=== PATIENT | male | born 1950 | race Caucasian/White ===

== ENCOUNTER 2017-03-03 09:13 | Inpatient (IN) | payer OTHER ==
[~2017-03-03] VITALS: Ht 182.9 cm; Wt 135.6 kg
[~2017-03-03 09:13] MED LIST: AMARYL4 MG PO; ASPIR 8181 MG PO; CARVEDILOL12.5 MG PO; COZAAR 50 MG TA50 M2 PO; DUONEB 2.5-0.5 M3 ML INH; FISH OIL 1,001000 M2 PO; FUROSEMIDE 20 M20 MG PO; KLOR-CON SPRIN10 MEQ PO; LASIX 80 MG TAB80 MG PO; LEVAQUIN 500 M500 M1 PO; LEVOTHYROXIN0.175 MG PO; METFORMIN HCL500 MG PO; METOLAZONE 5 MG5 MG PO; NORVASC2.5 MG PO; OXYGEN MISCELL; PREDNISONE 20 M20 MG PO; PRINIVIL20 MG PO; SPIRIVA INH; VENTOLIN HFA 1818 GM INH; XARELTO15 MG PO; ZOCOR20 MG PO; ZPAK PO
[2017-03-03 09:23] VITALS: BP 109/52
[2017-03-03] MEDS ORDERED: SYNTHROID100 MCG PO (09:35)
[2017-03-03] MEDS ORDERED: COREG6.25 MG PO (09:40)
[2017-03-03] MEDS ORDERED: LASIX 20 MG TAB20 MG PO (09:40)
[2017-03-03] MEDS ORDERED: LANTUS SUBQ (09:42)
[2017-03-03 09:58] LABS: HEMATOCRIT 40.8 % (42.0-52.0); HEMOGLOBIN 13.1 gm/dL (14.0-18.0); MCH 29.7 pg (26.0-34.0); MCV 92.7 fL (80.0-100.0); MPV 10.7 fl. (7.2-11.1); NUCLEATED RBCS 0 /100WBC; PLATELET COUNT* 187 thou/uL (150-400); RBC 4.41 mil/uL (4.50-6.00); RDW-CV 14.5 % (10.5-14.5); WBC 30.1 thou/uL (4.0-11.0)
[2017-03-03 10:08] LABS: ANION GAP 6 mmol/L (7-16); BUN 50 mg/dL (7-18); CHLORIDE 102 mmol/L (98-107); CO2 30 mmol/L (21-32); GLUCOSE 240 mg/dL (70-99); POTASSIUM 4.6 mmol/L (3.5-5.1); SODIUM 138 mmol/L (136-145)
[2017-03-03 10:19] LABS: BE -1.6 mmol/L (-2 to +3); HCO3 27.6 mmol/L (22.0-26.0)
[2017-03-03 10:19] LABS: ALBUMIN 2.5 g/dL (3.4-5.0); ALKALINE PHOSPHATASE 82 U/L (46-116); MAGNESIUM 2.2 mg/dL (1.8-2.4); SGOT 37 U/L (15-37); SGPT 38 U/L (30-65); TOTAL BILIRUBIN 0.6 mg/dL (<0.1-1.0); TOTAL PROTEIN 6.8 g/dL (6.4-8.2); TROPONIN-I LEVEL <0.06 ng/mL (<0.06)
[2017-03-03 10:22] LABS: PCO2 67.5 mmHg (35.0-45.0)
--- NOTE | 2017-03-03 10:33 | NUR ---
PT ON BIPAP AND DIFFICULT TO AROUSE. PT'S STATED THAT THIS MORNING WAS THE FIRST TIME THE PATIENT STATED THAT HIS RIBS WERE HURTING.
[2017-03-03 10:37] LABS: NT-PRO BRAIN NAT PEPTIDE 4063 pg/mL (<300)
[2017-03-03 10:48] LABS: ABSOLUTE LYMPHOCYTES 0.3 thou/uL (0.8-5.3); ABSOLUTE MONOCYTES 1.2 thou/uL (0.0-1.2); ABSOLUTE NEUTROPHILS 28.6 thou/uL (1.6-8.1)
[2017-03-03 10:49] LABS: PLATELET ESTIMATE ADEQUATE
[2017-03-03 11:14] LABS: URINE BILIRUBIN NEGATIVE (Negative); URINE BLOOD 2+ (Negative); URINE CLARITY CLEAR; URINE COLOR YELLOW; URINE GLUCOSE-RANDOM TRACE (Negative); URINE KETONES NEGATIVE (Negative); URINE LEUKOCYTES-REFLEX NEGATIVE (Negative); URINE NITRITE-REFLEX NEGATIVE (Negative); URINE PROTEIN 3+ (Negative); URINE SPECIFIC GRAVITY >= 1.030 (1.005-1.030); URINE UROBILINOGEN 0.2 E.U./dl (0.2-1.0)
[2017-03-03 11:39] LABS: AMORPHOUS URATES Few /LPF (None Seen); COARSE GRANULAR CASTS 0-3 Few /LPF (None Seen); FINE GRANULAR CASTS 0-3 Few /LPF (None Seen); HYALINE CASTS 0-3 Few /LPF (None Seen); MUCUS 0-3 Light strn/LPF (None Seen); SQUAMOUS 0-3 Few /LPF (0-3)
[2017-03-03 11:40] LABS: BACTERIA-REFLEX None Seen /HPF (None Seen); URINE RBC 0-2 Rare /HPF (0-2); URINE WBC-REFLEX 0-5 Rare /HPF (0-5)
[2017-03-03 15:15] VITALS: BP 119/59
[2017-03-03 16:00] VITALS: BP 122/60
--- NOTE | 2017-03-03 19:34 | NUR ---
VSS, PT IS NOT WANTING TO WEAR HIS BIPAP, HE KEEPS FINDING REASONS TO NOT WEAR IT, PT WANTS TO EAT, POOP, WATCH TV, I PROVITED EDUCATION FOR REASONS TO WEAR BIPAP, WILL FOLLOW WITH PLAN OF CARE.
[2017-03-03 20:00] VITALS: BP 93/75
[2017-03-03 22:06] LABS: GLYCOHEMOGLOBIN (HGB A1C) 11.8 % (4.8-5.6)
--- NOTE | 2017-03-03 22:06 | NUR ---
ASSUMED PATIENT CARE AT 1900. BEDSIDE REPORT GIVEN. PATIENT DROWSY. REFUSING BIPAP. REFUSING 02. INSTRUCTED ON IMPORTANCE OF COMPLIANCE WITH OXYGEN AND SYMPTOMS OF HYPOXEMIA. BG GREATER THAN 400, NOTIFIED DR ELIZABETH. ORDERS REC'D. PATIENT AGREED TO ONE CORINE WITH BIPAP ON. WILL CONTINUE TO ENCOURAGE HIM TO WEAR BIPAP. HOURLY ROUNDIN AND FALL PRECAUTIONS IN PLACE. WILL CONTINUE TO MONITOR.
[2017-03-04] VITALS (15 sets, daily range): BP systolic 81–1056; BP diastolic 32–69
[2017-03-04 04:58] LABS: ABSOLUTE LYMPHOCYTES 0.5 thou/uL (0.8-5.3); ABSOLUTE MONOCYTES 1.6 thou/uL (0.0-1.2); ABSOLUTE NEUTROPHILS 19.3 thou/uL (1.6-8.1); BASOPHILS 0.2 %; HEMATOCRIT 35.6 % (42.0-52.0); HEMOGLOBIN 11.5 gm/dL (14.0-18.0); LYMPHOCYTES 2.5 %; MCH 29.5 pg (26.0-34.0); MCHC 32.4 g/dL (28.0-37.0); MCV 91.1 fL (80.0-100.0); MONOCYTES 7.4 %; MPV 11.3 fl. (7.2-11.1); NUCLEATED RBCS 0 /100WBC; PLATELET COUNT* 178 thou/uL (150-400); POLYS 89.9 %; RBC 3.91 mil/uL (4.50-6.00); RDW-CV 15.1 % (10.5-14.5); WBC 21.4 thou/uL (4.0-11.0)
[2017-03-04 05:01] LABS: CALCIUM 8.8 mg/dL (8.5-10.1); CREATININE 2.4 mg/dL (0.6-1.3); POTASSIUM 4.1 mmol/L (3.5-5.1)
--- NOTE | 2017-03-04 06:00 | NUR ---
PATIENT STRUGGLED WITH ELEVATED BG THROUGH NIGHT. SPOKE WITH DR DAILY WITH ORDERS RECD. SEE EMAR. POSITIVE BLOOD CULTURES CALLED IN. SUSAN ORDERED IV ABT. CONSULT CALLED TO ID. BIPAP ON 80 PERCENT OF NIGHT. HOURLY ROUNDING AND FALL PRECAUTIONS IN PLACE. WILL CONTINUE TO MONITOR.
[2017-03-04 06:19] LABS: BE 0 mmol/L (-2 to +3); HCO3 27.2 mmol/L (22.0-26.0); PO2 94.4 mmHg (75.0-100.0); pH 7.304 (7.340-7.450)
--- NOTE | 2017-03-04 06:58 | NUR ---
NOTIFIED FULBRIGHT OF HEMATURIA. FLUSHED PHILLIPS. PHILLIPS PATENT WITH NO CLOTTING EVIDENT. ORDER RECD FOR UA.
[2017-03-04 08:55] LABS: APTT 37.1 Seconds (25.0-31.3); INR 1.5; PROTIME 14.7 Seconds (9.20-11.50)
--- NOTE | 2017-03-04 09:50 | NUR ---
PT TRANSFERED DOWN FROM [facility] WITH HYPOTENSION/SEPSIS DIAGNOSIS. PT KELSEY 02 AT 2.0 LITERS WITH 02 SATS LOW 90'S. PT WITH ENCOURAGEMENT PLACED BACK ON BIPAP. CL TO BE PLACED, PT DID SIGN CONSENT. PT WANTING TO EAT EXPLAINED TO PT REASONS FOR NPO STATUS.CELULITUS NOTED TO LOWER EXTREMITIES WITH REMIAN ELEVATED ON PILLOW BILATERLY.MOUTRH CARE GIVEN.
[2017-03-04 11:44] LABS: URINE BILIRUBIN NEGATIVE (Negative); URINE BLOOD 3+ (Negative); URINE CLARITY CLEAR; URINE COLOR YELLOW; URINE GLUCOSE-RANDOM NEGATIVE (Negative); URINE KETONES NEGATIVE (Negative); URINE LEUKOCYTES-REFLEX NEGATIVE (Negative); URINE NITRITE-REFLEX NEGATIVE (Negative); URINE PROTEIN 2+ (Negative); URINE SPECIFIC GRAVITY 1.025 (1.005-1.030); URINE UROBILINOGEN 0.2 E.U./dl (0.2-1.0)
[2017-03-04 11:58] LABS: INFLUENZA A ANTIGEN None Detected (None Detect); INFLUENZA B ANTIGEN None Detected (None Detect)
[2017-03-04 12:10] LABS: HYALINE CASTS 0-3 Few /LPF (None Seen); MUCUS 0-3 Light strn/LPF (None Seen)
[2017-03-04 12:11] LABS: CRYSTALS None Seen /LPF (None Seen); FINE GRANULAR CASTS 0-3 Few /LPF (None Seen); SQUAMOUS 0-3 Few /LPF (0-3); URINE WBC-REFLEX 0-5 Rare /HPF (0-5)
[2017-03-04 12:12] LABS: BACTERIA-REFLEX None Seen /HPF (None Seen); URINE RBC >20 Many /HPF (0-2)
--- NOTE | 2017-03-04 13:10 | EKG ---
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 : 1950 Requested By: Myra Olivas Order Number: [id number] Reading MD: Clifford Nielsen Measurements Intervals [place] Rate: 71 P: 0 DE: 180 QRS: 262 QRSD: 165 T: 91 QT: 459 QTc: 499 Interpretive Statements Ventricular-paced complexes No further analysis attempted due to paced rhythm Baseline wander in lead(s) V2,V3 Compared to ECG 03/27/2016 20:46:17 Atrial fibrillation no longer present Right-axis deviation no longer present T-wave abnormality no longer present Electronically Signed On 03-04-2017 13:10:24 REAL ESTATE ACQUISITION ANALYST by Clifford Nielsen [email or web address] <ELECTRONICALLY SIGNED> By: Clifford Nielsen MD, FACC 03/04/17 1310 Clifford Nielsen MD, FAC /EPI
[2017-03-04 19:35] LABS: CALCIUM 9.2 mg/dL (8.5-10.1); CREATININE 2.4 mg/dL (0.6-1.3); MAGNESIUM 2.4 mg/dL (1.8-2.4); PHOSPHORUS* 6.6 mg/dL (2.5-4.9); POTASSIUM 4.5 mmol/L (3.5-5.1)
--- NOTE | 2017-03-04 20:01 | NUR ---
PT TOLERATING LASIX GTT. PT REFUSEWD TURNING SEVERAL TIMES DURING SHIFT. PT HAS SLEPT MOST OF SHIFT.PT DOES NOT REMEMBER DR PLACING CENTRAL LINE. HERE FROM [facility] TO VISIT WITH PT. PT REFUSED AM CARE. PT DENIES ANY COMPLAINTS OF PAIN OR DISCOMFORT AT THIS TIME.PT SLOWLY IS PROGRESSING TOWARDS DISCHARGE GOALS.
[2017-03-05] VITALS (8 sets, daily range): BP systolic 110–154; BP diastolic 45–70
[2017-03-05 03:50] LABS: BASOPHILS 0.1 %; HEMOGLOBIN 11.3 gm/dL (14.0-18.0); NUCLEATED RBCS 0 /100WBC
[2017-03-05 04:04] LABS: ABSOLUTE LYMPHOCYTES 0.5 thou/uL (0.8-5.3); ABSOLUTE MONOCYTES 0.7 thou/uL (0.0-1.2); ABSOLUTE NEUTROPHILS 18.1 thou/uL (1.6-8.1); LYMPHOCYTES 2.5 %; MCH 29.1 pg (26.0-34.0); MCHC 31.3 g/dL (28.0-37.0); MONOCYTES 3.4 %; MPV 11.1 fl. (7.2-11.1); PLATELET COUNT* 164 thou/uL (150-400); RBC 3.87 mil/uL (4.50-6.00); RDW-CV 14.8 % (10.5-14.5); WBC 19.3 thou/uL (4.0-11.0)
[2017-03-05 04:23] LABS: CALCIUM 9.1 mg/dL (8.5-10.1); CREATININE 2.5 mg/dL (0.6-1.3)
--- NOTE | 2017-03-05 04:56 | NUR ---
PROGRESSION TOWARDS GOALS. ASSESSMENT AND VS OBTAINED, SEE CHARTING. PT BP HAS BEEN NORMAL WITH NO HYPOTENSTION. BATTERY LOADER ON AND TRACING V PACED. PT WORE THE BIPAP ALL NIGHT. PT HAD A LASIX GTT RUNNING AT 5ML/HR THROUGH OUT THE NIGHT. PT STAES THAT HE WOULD LIKE TO GET A CPAP FOR HM. TOLD HIM TO SPEAK WITH THE DR OR CM.
[2017-03-05 06:32] LABS: BE -4.1 mmol/L (-2 to +3); PO2 64.5 mmHg (75.0-100.0)
[2017-03-05 06:34] LABS: pH 7.277 (7.340-7.450)
[2017-03-05 06:35] LABS: PCO2 50.5 mmHg (35.0-45.0)
--- NOTE | 2017-03-05 08:46 | CON ---
[address] [address] CONSULTATION Name: GRECIA HOOD Room: [address] IN [facility].#: [id number] Admission: 03/03/17 Attend Phys: Bob Laura Discharge: Date of : 50 Report #: [id number] THIS REPORT FOR: //name// CC: Elaynemaya Mcguire DATE OF SERVICE: 03/04/2017 ATTENDING PHYSICIAN: Jas Mcguire DO. REASON FOR EVALUATION: Septicemia, now confirmed to have group C strep, isolated from blood culture. HISTORY OF PRESENT ILLNESS: Chart reviewed, patient examined. This is a 66-year-old with history of diabetes mellitus, also has cardiomyopathy, congestive heart failure, some COPD who had noted 48 hours prior to admission, progressive shortness of breath, quite lethargic, and had several falls as well. Bilateral lower extremity edema, altered mental status, elevated oxygen requirements, was treated in the Intensive Care Unit. He is really minimally responsive at this point. He does have a BiPAP in place. ALLERGIES: LISTED TO BENICAR. CURRENT MEDICATIONS: Include budesonide, Zosyn, methylprednisolone, ipratropium and albuterol inhaler, linezolid, arformoterol, levothyroxine, atorvastatin, and carvedilol. PAST MEDICAL HISTORY: As described above. He has had hypertension. SOCIAL HISTORY: Current smoker. No ethanol. No illicit drug use. FAMILY HISTORY: Noncontributory. REVIEW OF SYSTEMS: Not reliably obtained. PHYSICAL EXAMINATION: GENERAL: He appears ill, not overtly toxic although he is in significant amount of distress. He has got the BiPAP in place. He has got multiple abrasions presumably secondary to multiple falls involving the limbs, unable to be aroused. VITAL SIGNS: Temperature 98.2, pulse 70, respirations 18, blood pressure 100/50. SKIN: Warm, dry, no rashes. HEENT: Remarkable for the BiPAP. NECK: [place] [address] CONSULTATION Name: GRECIA HOOD Room: [address] IN [facility].#: [id number] Admission: 03/03/17 Attend Phys: Bob Laura Discharge: Date of : 50 Report #: [id number] LUNGS: Scattered coarse breath sounds. HEART: Distant, regular. I do not appreciate any murmur. ABDOMEN: Obese, soft, no peritoneal signs. GENITOURINARY: Deferred. RECTAL: Deferred. LABORATORY DATA: Blood cultures described above with group C strep. Urinalysis: 0-5 white cells, no bacteria. Influenza antigen was both negative for A and B. Lactic acid 0.7. ABGs: pH 7.304, pCO2 of 56.0, pO2 of 94.4, FiO2 of 40%. CBC: White count of 21.4, H and H 11.5/35.6, platelets of 178. Electrolytes: Sodium 140, potassium 4.1, chloride 104, bicarbonate is 29, anion gap of 7, BUN and creatinine 63 and 2.4. Sed rate of 50. IMAGING: Chest x-ray, no acute process. ASSESSMENT: Group C strep septicemia, presumably a skin source. We will follow through with cultures. Continue therapy as prescribed, certainly at risk for infectious complications such as pneumonitis, with altered mental status certainly may have aspirated. Doubt genitourinary tract etiology. Continue empiric therapy. Plan to pare down fairly quickly. Give mild support as required. <ELECTRONICALLY SIGNED> By: Geremias Garcia MD 03/05/17 0846 [id number] [id number] Garcia MD /nt
[2017-03-05 11:53] LABS: CREATININE 2.7 mg/dL (0.6-1.3); POTASSIUM 4.2 mmol/L (3.5-5.1)
--- NOTE | 2017-03-05 13:35 | NUR ---
REPORT RECIEVED FROM AWILDA MENDOZA. PT SITTING UP EATING AT THIS TIME. AGREE WITH PREVIOUS ASSESSMENT. DENIES PAIN, CARE MGR TRACKING VPACED. BED IN LOWEST POSITOIN-CALL LIGHT WITHIN REACH -WILL CONTINUE TO MONITOR.
--- NOTE | 2017-03-05 14:00 | NUR ---
SPOKE WITH TARIK FROM [facility]. WE TRIED GETTING A TRILOGY FOR PT A YEAR AGO, BUT HIS INSURANCE DENIED IT (DIDN'T GET THE DENIAL UNTIL AFTER PT WAS DISCHARGED FROM THE HOSPITAL). SHE CAN'T TELL FROM HER RECORDS IF PT WAS TO FOLLOW UP WITH PULMONARY ABOUT TRYING TO GET A BIPAP AT HOME. PT DOES HAVE HOME 02 AND NEBULIZER FROM [facility].
--- NOTE | 2017-03-05 18:06 | NUR ---
PT A&O X4. CARIDAC MONITOR TRACKING VPACED. PT SOA WITH EXERTION ON 3L NC SATURATION HOLDING AT 975. DENIES PAIN AT THIS TIME. BILATERAL LEGS WEAPING ELEVATED MUCH POSSIBLE PT SAT ON SIDE OF BED FOR AWHILE REFUSING TO ELEVATE. BM TODAY. ABLE TO GET PATIENT BACK IN BED AND ELEVATE LEGS. AT BEDSIDE THIS EVENING. BED IN LOWEST POSITOIN-CALL LIGHT WITHIN REACH-WILL CONTINUE TO MONITOR.
[2017-03-06] VITALS: BP 124/65
[2017-03-06 04:00] VITALS: BP 117/57
--- NOTE | 2017-03-06 05:04 | NUR ---
PT. PROGRESSING TOWARDS GOALS. LARGE BOWEL MOVEMENT THIS SHIFT. REMAINS V-PACED. NORMAL BP'S THROUGHOUT SHIFT. PT. CURRENTLY ON BIPAP, TOLERATED BIPAP WELL THIS SHIFT. AFEBRILE. BLOOD GLUCOSE 392 BEFORE BEDTIME, DR. HORVATH NOTIFIED. INCREASED TO HIGH DOSE SLIDING SCALE. LASIX GTT CONTINUES TO INFUSE. WILL CONTINUE TO MONITOR.
[2017-03-06 05:10] LABS: HEMATOCRIT 35.4 % (42.0-52.0); HEMOGLOBIN 11.3 gm/dL (14.0-18.0); MCH 29.2 pg (26.0-34.0); MCHC 31.9 g/dL (28.0-37.0); MCV 91.4 fL (80.0-100.0); MPV 11.6 fl. (7.2-11.1); NUCLEATED RBCS 0 /100WBC; PLATELET COUNT* 168 thou/uL (150-400); RBC 3.88 mil/uL (4.50-6.00); RDW-CV 14.8 % (10.5-14.5); WBC 17.9 thou/uL (4.0-11.0)
[2017-03-06 05:31] LABS: CALCIUM 9.2 mg/dL (8.5-10.1); CREATININE 2.9 mg/dL (0.6-1.3); POTASSIUM 4.2 mmol/L (3.5-5.1)
[2017-03-06 05:58] LABS: ABSOLUTE LYMPHOCYTES 1.1 thou/uL (0.8-5.3); ABSOLUTE MONOCYTES 0.2 thou/uL (0.0-1.2); ABSOLUTE NEUTROPHILS 16.6 thou/uL (1.6-8.1); LARGE PLATELETS RARE; PLATELET ESTIMATE ADEQUATE
[2017-03-06 05:58] LABS: BE 3.2 mmol/L (-2 to +3); HCO3 30.8 mmol/L (22.0-26.0); pH 7.318 (7.340-7.450)
[2017-03-06 05:59] LABS: ANISOCYTOSIS 1+; POIKILOCYTOSIS 1+
[2017-03-06 06:03] LABS: PCO2 61.4 mmHg (35.0-45.0); PO2 44.8 mmHg (75.0-100.0)
[2017-03-06 08:00] VITALS: BP 141/70
--- NOTE | 2017-03-06 08:54 | NUR ---
3197 ASSUMED CARE OF PATIENT. SEE DOCUMENTED ASSESSMENT. PT IS TELE STATUS AND V PACED WITH CAPTURE
--- NOTE | 2017-03-06 10:49 | NUR ---
Nutrition: Pt assessed for BMI >40. Wt has been 190#, today 199#, putting him barely ove BMI of 40. Lasix is off, per ICU rounds. Pt has COPD, CHF, ARF. He is going up to tele. Needs a CPAP for home use. Heart healthy diet, CHO count was just added this morning. Albumin 2.5, prealb 12.7, BG 248. Will defer education at this time. Per ICU rounds, pt is noncompliant with recommendations. Some wt is likely fluid-related as well. Mild risk.
--- NOTE | 2017-03-06 11:19 | CON ---
[facility] [address] [place] [address] CONSULTATION Name: GRECIA HOOD Room: [address] IN .R.#: [id number] Admission: 03/03/17 Attend Phys: Bob Laura Discharge: Date of : 50 Report #: [id number] THIS REPORT FOR: //name// CC: Elayne Mcguire DATE OF SERVICE: 03/04/2017 CONSULT REQUESTED BY: Dr. Mcguire. INDICATION FOR CONSULTATION: Acute on chronic hypercarbic respiratory failure. HISTORY OF PRESENT ILLNESS: This is a 66-year-old gentleman. His past medical history does include a history of chronic hypercarbic respiratory failure. There have been previous attempts to set up CPAP and then Trilogy for him at home. He previously also was assessed for oxygen at home. It is not known to me as to which of these was set up for him. He does have chronic obstructive pulmonary disease and he does have obstructive sleep apnea. The patient also does have renal insufficiency at his baseline with a baseline creatinine of 1.6. At this time, the patient was admitted yesterday. Presentation was with increasing shortness of breath. The patient has also been more drowsy. He also had increasing swelling of lower extremities and his lower extremities have been reported to be . The patient also had chest pain with respirations. Note that he is on anticoagulation with Xarelto at home. The patient therefore was brought to the Emergency Room here. The patient initially was on the floor on a BiPAP of 18/8 with 60% FiO2. Initially his pH was low with a high CO2. He has had a partial response to BiPAP therapy, in fact he does appear to be ventilating adequately with 18/8, 40% BiPAP at this time; however, he still appears to have severe bronchospasm. The patient is in acute renal failure with a creatinine of 2.4. He also dropped his blood pressure and it was down to 81/32 this morning and therefore has been brought to the ICU now. The patient initially received fluid resuscitation and subsequently received Lasix. The patient is on BiPAP at this time. He is drowsy, arousable, is unable to provide further history or review of systems. PAST MEDICAL HISTORY: Chronic obstructive pulmonary disease and obstructive sleep apnea. Chronic obstructive pulmonary disease is severe. He has significant hypercarbia at baseline. He previously has been evaluated initially for CPAP and then Trilogy and also was evaluated for oxygen, not known to me as to what was in fact set up. His baseline creatinine is 1.6. His left ventricular ejection fraction is 50-55% from an echo performed towards the beginning of this year. This same echo showed a pulmonary artery systolic of 40. Also, diabetes, hyperlipidemia, hypertension, status post pacemaker placement, atrial fibrillation as well as bradycardia. [place] [address] CONSULTATION Name: GRECIA HOOD Room: [address] IN [facility].#: [id number] Admission: 03/03/17 Attend Phys: Bob Laura Discharge: Date of : 50 Report #: [id number] Xarelto long-term. SOCIAL HISTORY: The patient was an active smoker during the last admission and was reluctant to consider smoking cessation. The last I know, he is still smoking, but I do not have definite information regarding this. No known history of heavy alcohol use or illegal drug use. CURRENT MEDICATIONS: The list is in [facility] and this is reviewed. Home medication list also in [facility] reviewed. FAMILY HISTORY: Diabetes and throat cancer. PHYSICAL EXAMINATION: GENERAL: He is drowsy, he is arousable. VITAL SIGNS: He is on a BiPAP of 18/8. He in fact appears to be ventilating adequately with this and has good tidal volumes of up to 700-800, is saturating 96%. His blood pressure was initially 81/32, has now come up to about 100/60. His heart rate is 63. He is afebrile with a temperature of 36.8. HEENT: Head is normocephalic and atraumatic. There is no throat erythema. Throat examination is limited due to BiPAP in place. NECK: Does not show raised JVP. CHEST: Breath sounds are markedly decreased, breath sounds are barely audible, the patient essentially has a silent chest. HEART: Irregular. There is no murmur. ABDOMEN: Mildly distended, nontender. EXTREMITIES: Lower extremities do show 2-3+ edema. There is erythema of lower extremities noted as well. There is vague calf tenderness. LABORATORY DATA: The patient's chest x-ray from this morning was reviewed and does show bilateral basal infiltrates. There is some mild increase in pulmonary vascular congestion as well. The patient's lab work including arterial blood gases are in [facility] and these are reviewed. ASSESSMENT AND PLAN: 1. Rexut-ki-zahippc hypercarbic respiratory failure. I feel that he is doing reasonably well on BiPAP at this time and his CO2 does appear to be improving, although he continues to have severe bronchospasm. For now, we will leave him on BiPAP. If he does not have Trilogy already at home, then I feel that we should offer it to him again before he is discharged. We will need to assess his oxygen needs as well prior to his discharge. 2. Chronic obstructive pulmonary disease exacerbation. The patient has severe bronchospasm at this time. I would continue high dose Solu-Medrol as currently ordered. I did order DuoNeb as well as budesonide and Brovana as well. 3. Pulmonary infiltrates and cellulitis lower extremities. Considering acute renal failure, I discontinued his vancomycin and ordered linezolid. Note that linezolid does not show up in [facility] in this hospital [place] [address] CONSULTATION Name: GRECIA HOOD Room: [address] IN [facility].#: [id number] Admission: 03/03/17 Attend Phys: Bob Laura Discharge: Date of : 50 Report #: [id number] under the orders tab. My understanding is that there is an active order for linezolid. The Infectious Disease service has also been consulted. I may go ahead and order more cultures and serologies as well. 4. Acute on chronic renal failure with fluid volume overload and hypotension. I do feel that he will need Lasix; however, at this time his blood pressure is low. He also is in acute renal failure. Therefore, for now I have discontinued his Lasix. I did order albumin. If his respiratory status is maintained, then I will watch till tomorrow and reassess regarding when to start Lasix tomorrow. However, if his respiratory status deteriorates today, then we will go ahead and give him Lasix again later today. 5. Chronic atrial fibrillation. The patient is on Xarelto. I have discontinued Xarelto considering acute renal failure. I understand that he does need long-term anticoagulation, suggest reassessing in the next day or two and restarting his anticoagulation. One option considering renal failure will be to give him Eliquis instead of Xarelto. Also note that while he was on Xarelto, it is not known to me as to whether he was compliant with it. Therefore, I would like to do venous Dopplers as well and rule out a venous thrombus. The patient is critically ill at this time. Total time spent providing critical care to this patient today is 45 minutes. <ELECTRONICALLY SIGNED> By: Elodia Yoo MD 03/06/17 1119 [id number] [id number] Fitzpatrick MD /nt
[2017-03-06 12:00] VITALS: BP 142/63
--- NOTE | 2017-03-06 12:36 | NUR ---
MESSAGE TO DR DEGROOT REGARDING RECENT BLOOD GLUCOSE. CARDIAC REHAB SPOKE WITH PATIENT REGARDING HIS CHF.
--- NOTE | 2017-03-06 13:25 | NUR ---
FOOT PULSES AUDIBLE WITH DOPPLER. SEEN BY WOUND NURSE. DOPPLERS PENDING
--- NOTE | 2017-03-06 14:04 | NUR ---
JOHN FAXED TO [employer]
--- NOTE | 2017-03-06 15:37 | NUR ---
1515 to 214 per bed with all records and belongings
--- NOTE | 2017-03-06 18:20 | NUR ---
WOUND CARE NOTE: CONSULT RECEIVED FOR VENOUS ULCERS/UNABOOTS. PATIENT PRESENTS WITH INFLAMMATION AND EDEMA TO BILATERAL LOWER LEGS. RIGHT BEING WORSE THAN THE LEFT. CHRONIC SKIN CHANGES NOTED. RIGHT LEG HAS MULTIPLE AREAS OF SKIN BREAKDOWN WET, MOIST, YELLOW WOUND BEDS. BILATERAL LEGS CLEANSED WITH WOUND CLEANSER, PATTED DRY. APPLIED OPTIFOAM AG TO WOUND BEDS AND SECURED ALL WITH KERLIX AND HARRIET. PATIENT'S ARTERIAL STUDIES SHOW MONOPHASIC FLOW AND SMALL VESSELS. WILL DISCUSS WITH PHYSICIANS TOMORROW. EDUCATED PATIENT ON DRESSING SELECTION FOR THIS TIME, COMMUNICATED UNDERSTANDING. RECOMMEND ELEVATE BLE POSSIBLE NEED FOR HIGHER COMPRESSION, NEED TO DISCUSS WITH PHYSICIANS
--- NOTE | 2017-03-06 18:33 | NUR ---
PT TRANSFERRED TO ROOM 214 VIA BED AT APPROXIMATELY 1600 FROM ICU. PT WENT FOR ULTRASOUND VIA BED PRIOR TO COMING TO FLOOR. REPORT RECEIVED FROM KELLY DWYER. PT ORIENTED TO ROOM AND CALL LIGHT. THIS RN AGREES WITH PREVIOUS [place] SEAMER. PT A&0X4. DENIES ANY PAIN OR SHORTNESS OF BREATH. PT TRACING VPACED ON THE NEW VEHICLE SALES CONSULTANT. ON 3L NC SAT UPPER 90'S. PT VOIDS PER URINAL. UP WITH 1 ASSIST TO BSC. WOUND CARE HERE TO SEE PT AND WRAPPED BILATERAL LE'S. ULTRASOUND RESULTS BACK. REFER TO RESULTS. MEDICATIONS PER APR. PT REPOSITIONED EVERY 2 HOURS FOR COMFORT. HOURLY ROUNDING OBSERVED. BED IN LOW POSITION. BED ALARM IN PLACE. FALL PRECAUTIONS IN PLACE. CALL LIGHT WITHIN REACH. WILL CONTINUE PLAN OF CARE.
[2017-03-06 20:30] VITALS: BP 142/65
[2017-03-07] VITALS: BP 152/80
[2017-03-07 04:00] VITALS: BP 111/57
--- NOTE | 2017-03-07 06:26 | NUR ---
ASSUMED CARE AROUND 1930. PT A/OX4, DROWSY PERIODICALLY DURING SHIFT. PT TOLERATED BIPAP FOR ABOUT 4 HOURS THIS SHIFT; OTHERWISE ON 3L NC. TELE V-PACED. VSS. LOOSE STOOLS. UP SBA TO BSC, URINATED ALL OVER FLOOR ON ACCIDENT. FEMORAL LINE SALINE LOCKED. DENIES PAIN. DOPPLERED LE PULSES. LE WRAPS IN PLACE. PT REPORTS SLEEPING WELL AND FEELING BETTER THIS AM. FALL PRECAUTIONS IN PLACE. WILL CONTINUE WITH PLAN OF CARE.
[2017-03-07 06:32] LABS: CREATININE 3.1 mg/dL (0.6-1.3); POTASSIUM 4.1 mmol/L (3.5-5.1)
[2017-03-07 08:00] VITALS: BP 154/78
--- NOTE | 2017-03-07 10:41 | NUR ---
Spoke with Pt and , they both confirmed that Pt does have a cpap at home through [facility]. Updated Ana at [facility] that Pt does have a cpap. CM to attempt to figure out what Pt needs at home. Pt states that he thinks he needs some kind of special mask to make the cpap work appropriately. Following.
--- NOTE | 2017-03-07 10:50 | NUR ---
CM ASSESSMENT: Pt is A&O. Resides at home with his . Independent with ADLs. Pt states that he has home o2, neb and cpap at home, provided through [facility]. Hx of HH with [facility]. No hx of SNF. CM trying to figure out what Pt needs at home to make his Cpap work for him. CM in contact with Ana from [facility] and will update pulm. Goal is to return home once medically stable.
[2017-03-07 11:41] VITALS: BP 140/63
[2017-03-07 16:00] VITALS: BP 159/62
--- NOTE | 2017-03-07 18:36 | NUR ---
WOUND CARE NOTE: ASSESSED PATIENT WITH VASCULAR SURGEON. SIGNIFICANT DRAINAGE TO RIGHT LOWER EXTREMITIES. RIGHT LOWER EXTREMITY RED, EDEMATOUS, WITH MULTIPLE AREAS OF BLISTERING AND BREAKDOWN. LEFT LOWER EXTREMITY REMAINS UNCHANGED WITH INFLAMMATION TO THE PRETIBIAL AREA. CLEANSED BOTH LEGS WITH SOAP AND WATER, APPLIED LOTION TO INTACT SKIN. APPLIED OPTIFOAM AG TO OPEN, WEEPING AREAS. THEN PLACED 3 LAYER WRAPS BILATERALLY. PATIENT TOLERATED DRESSING CHANGE WELL, DID HAVE SOME PAIN DURING WRAP OF RIGHT LOWER EXTREMITY WHICH RESOLVED UPON COMPLETION OF WRAP PLACEMENT.
--- NOTE | 2017-03-07 18:51 | NUR ---
ASSUMED CARE OF PT AT 0730. BEDSIDE REPORT RECIEVED FROM NOC ELIZABETH DOMINGUEZ. PT CONTINUES TO BE A&O X4 CALM AND COOPERATIVE. PT HAS C/O BACK AND BLE PAIN BUT DENIES THE NEED FOR PHARMACOLOGICAL INTERVENTION. PT HAS BEEN UP TO THE BATHROOM WITH 1 ASSIST SEVERAL TIMES TODAY AND IS VOIDING VIA THE TOILET NORMALLY. PT HAS HAD NO C/O N/V, OR CHEST PAIN. LEGS WERE CLEANED AND REDRESSED BY THE WOUND NURSE WITH THIS NURSE ASSISTING. PT CONTINUES TO HAVE SIGNIFICANT EDEMA IN BLE AND SCROTUM. PT TRACING V PACWED WITH PVC'S ON THE MONITOR, VSS. PT CURRENTLY SITTING IN BED WATCHING TV. NURSING WILL CONTINUE TO MONITOR.
[2017-03-08] VITALS: BP 153/76
--- NOTE | 2017-03-08 | NUR ---
PT'S CALLED REQUESTING PT BE MADE CONFIDENTIAL STATUS D/T A SON WHO WAS UPSET WITH PATIENT. SON'S NAME GRECIA HOOD JR. PATIENT STATES SON ISN'T THREATENING OR A DANGER, JUST UPSET BECAUSE HE OWES PATIENT MONEY. PATIENT DOES NOT WANT HIM TO KNOW HE'S HERE OR WHAT ROOM HE'S IN. SECURITY NOTIFIED AND MADE CONFIDENTIAL IN COMPUTER.
[2017-03-08 04:37] VITALS: BP 136/67
[2017-03-08 05:36] LABS: HEMATOCRIT 35.9 % (42.0-52.0); HEMOGLOBIN 11.4 gm/dL (14.0-18.0); MCH 29.4 pg (26.0-34.0); MCHC 31.7 g/dL (28.0-37.0); MCV 92.8 fL (80.0-100.0); MPV 11.1 fl. (7.2-11.1); RBC 3.87 mil/uL (4.50-6.00); RDW-CV 14.9 % (10.5-14.5); WBC 13.9 thou/uL (4.0-11.0)
[2017-03-08 05:57] LABS: ALBUMIN 2.5 g/dL (3.4-5.0); CREATININE 2.7 mg/dL (0.6-1.3); MAGNESIUM 2.9 mg/dL (1.8-2.4); PHOSPHORUS* 6.2 mg/dL (2.5-4.9); POTASSIUM 4.9 mmol/L (3.5-5.1); TOTAL BILIRUBIN 0.5 mg/dL (<0.1-1.0)
--- NOTE | 2017-03-08 07:29 | NUR ---
ASSUMED CARE AROUND 1930. PT A/OX4. PT DID NOT REST WELL TONIGHT BUT WORE CONT PULSE OX. PT SLEPT MAYBE 3 HOURS THIS AM. TELE TRACING SR/BBB. VSS, AFEBRILE. FEMORAL LINE PATENT. ON 3L NC-PT REMOVES AT TIMES. INSTRUCTED TO LEAVE IN PLACE. PT DRINKING COFFEE AND M[place]AIN DEW- ENCOURAGE TO DRINK WATER THIS AM, PITCHER FILLED WITH WATER. UP SBA TO BSC TONIGHT. BM THIS SHIFT, INCONT ON FLOOR. REPORTING RIGHT RIB PAIN THIS AM, REFUSED PAIN MEDS AT THIS TIME. PVR BLADDER SCAN DONE LAST NIGHT, 224 ML. SEE OTHER CHARTING. CALL LIGHT IN REACH, WILL CONTINUE WITH PLAN OF CARE.
[2017-03-08 08:17] VITALS: BP 169/78
--- NOTE | 2017-03-08 10:28 | NUR ---
Overnight oxemetry completed last night, does not qualify Pt for bipap per Ana at [facility]. Ana plans to resubmit referral to Pt's insurance to qualify him for a trilogy.
--- NOTE | 2017-03-08 16:21 | 2DMMODE ---
[place] [address] 2 D/M-MODE ECHOCARDIOGRAM Name: GRECIA HOOD Room: [address] ADM IN [facility]#: [id number] Admission: 03/03/17 Attend Phys: Jas Mcguire Discharge: Date of : 50 Date of Service: 03/08/17 1621 Report #: [id number] THIS REPORT FOR: //name// APPROVED REPORT Study performed: 03/08/2017 12:12:46 EXAM: Comprehensive 2D, Doppler, and color-flow Echocardiogram Patient Location: In-Patient Room #: 214 Status: routine BSA: 2.53 HR: 77 bpm BP: 169/78 mmHg Rhythm: NSR Other Information Study Quality: Good Indications Congestive Heart Failure Dyspnea Echo Enhancing Agent Indication: Endocardial border delineation Agent(s) / Amount(s) Used: Optison 4 cc 2D Dimensions LVEF(%): 66.69 (>50%) IVSd: 18.94 (7-11mm) LVOT Diam: 20.00 (18-24mm) LVDd: 54.46 mm PWd: 12.95 (7-11mm) Ascending Ao: 40.07 (22-36mm) LVDs: 34.17 (25-40mm) Aortic Root: 36.64 mm Parmar's LVEF: 66.69 % Volumes Left Atrial Volume (Systole) LA ESV Index: 38.90 mL/m2 Aortic Valve AoV Peak Yovany.: 2.11 m/s AO Peak Gr.: 17.73 mmHg LVOT Max P.57 mmHg AO Mean Gr.: 10.08 mmHg LVOT Mean P.72 mmHg LVOT Max V: 0.94 m/[place] [address] 2 D/M-MODE ECHOCARDIOGRAM Name: GRECIA HOOD Room: [address] IN .R.#: [id number] Admission: 03/03/17 Attend Phys: Jas Mcguire Discharge: Date of : 50 Date of Service: 03/08/17 1621 Report #: [id number] AO V2 VTI: 44.86 cm LVOT Mean V: 0.60 m/s JAIRO (VTI): 1.36 cm2 LVOT V1 VTI: 19.43 cm Mitral Valve E/A Ratio: 2.89 MV Decel. Time: 179.46 ms MV E Max Yovany.: 1.24 m/s MV PHT: 52.04 ms MVA (PHT): 4.23 cm2 TDI E/Lateral E': 12.40 E/Medial E': 17.71 Medial E' Yovany.: 0.07 m/s Lateral E' Yovany.: 0.10 m/s Tricuspid Valve TR Peak Gr.: 37.65 mmHg RVSP: 42.00 mmHg Left Ventricle Left ventricle is mildly dilated. Apical akinesis noted. Mild to moderate concentric left ventricular hypertrophy. Left ventricular systolic function is normal. LVEF is 55-60%. This study is not technically sufficient to allow evaluation of the LV diastolic function due to atrial fibrillation. Right Ventricle Right ventricle is mild to moderately dilated. The right ventricular systolic function is normal. Pacemaker lead is present in the right ventricle. Atria Left atrium is moderately dilated. Right atrium is mildly dilated. Aortic Valve Aortic valve sclerosis. No aortic regurgitation is present. Mild to moderate aortic stenosis. Mitral Valve The mitral valve is normal in structure. Trace mitral regurgitation. No evidence of mitral valve stenosis. Tricuspid Valve The tricuspid valve is normal in structure. Trace tricuspid regurgitation. The RVSP is 40-[place] [address] 2 D/M-MODE ECHOCARDIOGRAM Name: GRECIA HOOD Sara Room: [address] IN [facility]#: [id number] Admission: 03/03/17 Attend Phys: Jas Mcguire Discharge: Date of : 50 Date of Service: 03/08/17 1621 Report #: [id number] Pulmonic Valve The pulmonary valve is normal in structure. There is no pulmonic valvular regurgitation. Great Vessels Aortic root is mildly dilated. IVC is normal in size and collapses with >50% inspiration Pericardium There is no pericardial effusion. <Conclusion> Left ventricle is mildly dilated. Mild to moderate concentric left ventricular hypertrophy. Left ventricular systolic function is normal. LVEF is 55-60%. This study is not technically sufficient to allow evaluation of the LV diastolic function due to atrial fibrillation. Apical akinesis noted. Right ventricle is mild to moderately dilated. Left atrium is moderately dilated. Right atrium is mildly dilated. Pacemaker lead is present in the right ventricle. Aortic valve sclerosis. Mild to moderate aortic stenosis. Trace tricuspid regurgitation. The RVSP is 40-45 mmHg. Aortic root is mildly dilated. <ELECTRONICALLY SIGNED> By: Demarcus Hill MD, FACC 03/08/17 162 20 20 Demarcus Hill MD, FACC /INF
[2017-03-08 16:43] VITALS: BP 173/76
[2017-03-08 17:09] LABS: COMPLEMENT-C4 35 mg/dL (14-44)
--- NOTE | 2017-03-08 18:14 | NUR ---
ASSUMED CARE OF PT AT 0730. PT CONTINUES TO BE A&O X4, CALM AND COOPERATIVE. PT HAS DENIED AND C/O CHEST PAIN OR DISTRESS. REPORTS OC CASIONAL BACK PAIN BUT DENIES THE NEED FOR PAIN MEDICATION. PT BLADDER SCAN POST VOID X 2 TODAY AND WAS LESS THAN 100 ML EACH TIME. PT HAS A GOOD APPETITE AND HAS ATE 100% OF ALL MEALS. BLE DRESSING CHANGED BY WOUND NURSE. PT UP TO BEDSIDE COMMODE TODAY WITH 1 ASSIST. PT HAS BEEN TRACING NSR WITH A BBB ON THE MONITOR TODAY. NURSING WILL CONTINUE TO MONITOR.
[2017-03-08 20:00] VITALS: BP 161/74
[2017-03-09] VITALS: BP 134/66
[2017-03-09 04:00] VITALS: BP 163/86
[2017-03-09 05:26] LABS: ABSOLUTE LYMPHOCYTES 0.4 thou/uL (0.8-5.3); ABSOLUTE MONOCYTES 0.4 thou/uL (0.0-1.2); ABSOLUTE NEUTROPHILS 12.6 thou/uL (1.6-8.1); BASOPHILS 0.2 %; EOSINOPHILS 0.1 %; HEMATOCRIT 36.7 % (42.0-52.0); HEMOGLOBIN 11.8 gm/dL (14.0-18.0); LYMPHOCYTES 2.7 %; MCH 29.4 pg (26.0-34.0); MCHC 32.1 g/dL (28.0-37.0); MCV 91.8 fL (80.0-100.0); MONOCYTES 3.1 %; MPV 11.1 fl. (7.2-11.1); NUCLEATED RBCS 0 /100WBC; PLATELET COUNT* 167 thou/uL (150-400); POLYS 93.9 %; RDW-CV 14.8 % (10.5-14.5); WBC 13.4 thou/uL (4.0-11.0)
[2017-03-09 06:04] LABS: ALBUMIN 2.4 g/dL (3.4-5.0); CALCIUM 9.2 mg/dL (8.5-10.1); CREATININE 2.3 mg/dL (0.6-1.3)
--- NOTE | 2017-03-09 06:45 | NUR ---
ASSUMED CARE OF PT AT 1930, NURSING ASSESSMENT COMPLETED AT START OF SHIFT, PT VOICED NO CONCERNS, URINAL AT BEDSIDE, PT CONTINUES ON TELE MONITOR, TRACING SINUS RHYTHM WITH BBB. PT VERBALIZES BACK PAIN BUT REFUSES PAIN MEDICATION THIS SHIFT. PT EDUCATED ON IMPORTANCE OF POST VOID BLADDER SCAN PER DR. GARDNER. PT VERBALIZED UNDERSTANDING, STATED HE WOULD REFUSE URINARY CATHETER NO MATTER WHAT. 2 POST VOID BLADDER SCAN SHOWED 0 RESIDUAL. PT VOIDED 450 ML EACH TIME. NO FALLS THIS SHIFT, CALL LIGHT WITHIN REACH.
[2017-03-09 08:00] VITALS: BP 157/80
--- NOTE | 2017-03-09 08:40 | NUR ---
RECEIVED REPORT. ASSUMED CARE OF PT AT 0730. PT A&O X4. VSS. O2 SAT 91% ON ROOM AIR. TRACTOR TRAILER DRIVER IN PLACE TRACING VPACED. AM ASSESSMENT AND VITALS COMPLETED CHARTED. RIGHT GROIN TRIPLE LUMEN FLUSHES WELL. PT DENIES PAIN AT THIS TIME. PT EATING AND DRINKING WITHOUT ISSUE. PT SITTING UP ON SIDE OF BED. PT REFUSES BED ALARM. PT REFUSES TO CALL OUT FOR ASSISTANCE WITH TRANSFERING TO BEDSIDE COMMODE, DESPITE TEACHING ON THE NEED TO CALL OUT FOR HELP TO MINIMIZE FALL RISK. PT INFORMED OF PLAN OF CARE. PT COMMUNICATES UNDERSTANDING. PT WOULD LIKE CENTRAL LINE TO BE REMOVED AND DOES NOT WANT A PERIPHERAL LINE TO BE PLACED. PITTING EDEMA TO BLE NOTED. DRESSING TO BLE CDI. PT REFUSING TO KEEP LEGS ELEVATED, STATIING HE IS "UNCOMFORTABLE LAYING DOWN". NOTED SWELLING TO SCROTUM. CALL LIGHT IS WITHIN REACH. WILL CONTINUE TO MONITOR.
--- NOTE | 2017-03-09 08:41 | CON ---
[address] [address] CONSULTATION Name: GRECIA HOOD Room: [address] IN .R.#: [id number] Admission: 03/03/17 Attend Phys: Bob Laura Discharge: Date of : 50 Report #: [id number] THIS REPORT FOR: //name// CC: Elayne Goel Demarcus Mcguire DATE OF SERVICE: 03/04/2017 INPATIENT CONSULTATION REQUESTING PHYSICIAN: Jas Mcguire DO PRIMARY VOLCANOLOGY PROFESSOR: Demarcus Hill MD REASON FOR CONSULTATION: Congestive heart failure. HISTORY OF PRESENT ILLNESS: The patient is a 66-year-old male with a history of prior permanent pacemaker who presents with 3-7 days of increasing shortness of breath and presents with marked lower extremity edema and respiratory insufficiency. Presently, he is on BiPAP with saturations in the low 90%. He is without complaints of chest pain or pressure. It does not appear that was presenting symptom. The patient himself is a poor historian. He has underlying paced rhythm, but no documented history of coronary disease. He is followed by Dr. Hill in our practice who inserted a permanent pacemaker in 2014 for the indication of AFib and slow ventricular response and had cardiac pauses and evidence of sick sinus syndrome. It is a Biotronik device. It is a single chamber device. He presents with stable hemodynamics and normal troponin levels. His white count was more than 30 on initial presentation and he is being treated with broad-spectrum antibiotics. PAST MEDICAL HISTORY: Significant for multiple falls, paroxysmal atrial fibrillation, sick sinus syndrome, permanent pacemaker, morbid obesity, type 2 diabetes mellitus. ALLERGIES: HE HAS ALLERGIES TO BENICAR. HOME MEDICATIONS: Included Xarelto 50 mg daily, Lasix 80 mg daily, metolazone 5 mg 4 days per week, Spiriva, glimepiride 4 mg daily, carvedilol 6.25 mg twice daily, losartan 50 mg daily. PAST SURGICAL HISTORY: [place] [address] CONSULTATION Name: GRECIA HOOD Room: [address] IN [facility].#: [id number] Admission: 03/03/17 Attend Phys: Bob Laura Discharge: Date of : 50 Report #: [id number] SOCIAL HISTORY: He is an active smoker, 50 pack-year history. REVIEW OF SYSTEMS: GASTROINTESTINAL: No abdominal pain, nausea. CARDIOVASCULAR: Does not present with chest pain or pressure. PULMONARY: Positive shortness of breath, positive orthopnea, positive PND, positive wheezing, positive cough. MUSCULOSKELETAL: Positive falls. GENERAL: Positive weakness and falls. NEUROLOGIC: Denies focal symptoms of headaches, blurry vision. There is no seizure activity. There is diminished level of consciousness on initial presentation. PHYSICAL EXAMINATION: VITAL SIGNS: Blood pressure is in the 80s-100s systolic, pulse is 70, paced rhythm, temperature is 36.8. His ABG on presentation was 7.2 with a pCO2 of 67.5, a pO2 of 143 when started resuscitation in the Emergency Room on BiPAP 13/10. This morning, his pH is 7.30 and his pCO2 is 56. GENERAL: This is a morbidly obese, middle-aged male. He is obtunded, but when awake is able to answer questions appropriately. HEENT: He is on BiPAP. NECK: There is jugular venous distention. CARDIOVASCULAR: His heart tones are distant. It is regular, cannot hear an S3. LUNGS: Diminished breath sounds bilaterally. ABDOMEN: Obese, protuberant, distended. There is no rebound or guarding or tenderness though. EXTREMITIES: There is severe 3+ pitting edema to the knees. SKIN: There are numerous excoriations and he has an abrasion and the lesion from a fall on his right elbow. Apparently, he also has one on the sacrum. ECG demonstrates a V-paced rhythm. His cardiac troponin level is normal. INR is 1.5. IMPRESSION: 1. Acute on likely chronic systolic congestive heart failure. Initially, he was diuresed and his creatinine went up to 2.4, but I still think he is significantly volume overloaded. I would place him on low-dose Lasix drip 5 mg an hour and give him one dose of metolazone for at least the next 24 hours. Continue with this plan. 2. Acute on chronic kidney disease. I would hold his ARB for the time being. 3. Permanent pacemaker. He appears to be functioning appropriately. 4. Permanent atrial fibrillation. I would hold his anticoagulation for now as he has evidence of kidney failure, but restart Lovenox at a later date. I am not sure if he is going to be taking p.o. as he is minimally responsive today. 5. Morbid obesity, he has evidence of significant deconditioning and falls history and will need likely physical therapy and possible transition to a rehab [address] [place] [address] CONSULTATION Name: TONINI,GRECIA G Room: [address] IN .R.#: [id number] Admission: 03/03/17 Attend Phys: Bob Laura Discharge: Date of : 50 Report #: [id number] facility when hemodynamically stable. 6. Infection. He has been treated with broad-spectrum antibiotics for a presumed pneumonia. <ELECTRONICALLY SIGNED> By: Clifford Nielsen MD, FACC 03/09/17 0841 [id number] Nielsen MD, FACC /nt
--- NOTE | 2017-03-09 10:54 | NUR ---
Spoke with Ana from [facility], still waiting decision from insurance regarding trilogy. Ana informed that it can take up to 7 days to get a decision. Following.
[2017-03-09 12:10] VITALS: BP 171/75
[2017-03-09 15:54] VITALS: BP 166/84
--- NOTE | 2017-03-09 16:22 | CON ---
[address] [address] CONSULTATION Name: GRECIA HOOD Room: [address] IN .R.#: [id number] Admission: 03/03/17 Attend Phys: Bob Laura Discharge: Date of : 50 Report #: [id number] THIS REPORT FOR: //name// CC: Elayne Mcguire CONSULTING PHYSICIAN: Jas Mcguire DO REASON FOR CONSULTATION: Acute kidney injury. HISTORY OF PRESENT ILLNESS: This is a 66-year-old gentleman with a history of chronic kidney disease who was seen in our office in 02/2015, but because of financial difficulties was not able to follow up. He has been following with his primary physician. He comes in with shortness of breath. He has been diagnosed with a strep bacteremia and pneumonitis. He is being followed by Infectious Disease as well as Pulmonology. I am asked to see him because of a rise in his creatinine. On 03/03, his creatinine was 2 and today his creatinine is up to 3.1. He denies any shortness of breath. He tells me his lower extremity swelling is actually improving. He also has cellulitis of his lower leg. He was on CPAP at home apparently, but was not using it. REVIEW OF SYSTEMS: Constitutional, psych, heme, eyes, ENT, respiratory, cardiac, GI, , endocrine, all negative except as documented above. PAST MEDICAL HISTORY: Diabetes, chronic kidney disease stage 3, hypertension, history of proteinuria, hypothyroidism, Graves disease with ablation in 2011, obesity and questionable obstructive sleep apnea. SOCIAL HISTORY: Positive for extensive tobacco use. FAMILY HISTORY: Not pertinent in this 66-year-old gentleman. CURRENT MEDICATIONS: Reviewed. PHYSICAL EXAMINATION: VITAL SIGNS: Blood pressure 140/63, pulse 64, respirations 16 and temperature 36.5. GENERAL: No acute distress. EYES: Extraocular movements intact. EARS: Externally normal. CARDIOVASCULAR: Regular rate. LUNGS: Diminished breath sounds. ABDOMEN: Soft. LYMPHATICS: Bilateral lower extremity swelling and erythema. PSYCHIATRIC: [place] [address] CONSULTATION Name: GRECIA HOOD Room: [address]#: [id number] Admission: 03/03/17 Attend Phys: Bob Laura Discharge: Date of : 50 Report #: [id number] LABORATORY DATA: White cell count 17.9, hemoglobin 11.3 and platelets 168. Sodium 141, potassium 4.1, chloride 100, bicarbonate 32, BUN 111, creatinine 3.1, glucose 185 and calcium 9. ASSESSMENT: 1. Acute kidney injury in the setting of sepsis and strep bacteremia. On 03/03, creatinine was 2. On 03/07, creatinine 3.1. When he was seen in our office on 03/11/2015, he had a creatinine of 1.4 and this was a lab drawn on 01/28/2015. 2. Respiratory acidosis. 3. Chronic obstructive pulmonary disease, questionable sleep apnea. 4. Volume overload. 5. Atrial fibrillation. 6. Bacteremia, strep. 7. Chronic kidney disease, stage 3. In 03/2016, creatinine 1.6. 9. In 02/2016, EF of 50-55%. 10. Hyperphosphatemia. 11. Hypoalbuminemia. PLAN: 1. Repeat UA has been ordered. His UA as noted did have some protein and blood in it. He is on Unasyn. Differential for his acute kidney injury include a possible infectious GN versus interstitial nephritis. 2. We will check a kidney ultrasound. Check CK and check complements. Check a bladder scan. He may need another echo. 3. If creatinine continues to worsen, may wish to consider changing antibiotics as an alternative in case this is interstitial nephritis and if there is an effective alternative. 4. If this is in fact infectious glomerular nephritis, diuresis typically begins within 1 week. Follow up closely. Thank you for requesting my opinion in the care and management of this patient. <ELECTRONICALLY SIGNED> By: Sophia Crane MD 03/09/17 1622 [id number] [id number] Crane MD /nt
--- NOTE | 2017-03-09 19:00 | NUR ---
VSS. O2 REMAINS >90% ON ROOM AIR. CREDIT CARD SPECIALIST REMAINS IN PLACE WITH CHANGE TO SR BBB. RIGHT GROIN TRIPLE LUMEN REMOVED, CATHETER INTACT. PRESSURE HELD AND DRESSING APPLIED. SWELLING IN SCROTUM AND BLE HAS PERSISTED DESPITE DIURESIS. SMALL OPEN BLISTER ON SCROTUM NOTED. PICTURE TAKEN. EXCORIATION NOTED TO RIGHT UPPER MEDIAL THIGH - PICTURE TAKEN. AFTER REFUSING TO LAY DOWN ALL SHIFT, PT FINALLY AGREED TO LAY DOWN IN BED TO ELEVATE LOWER EXTREMITIES AND ALLOWED A TOWEL TO BE PLACED UNDER SCROTUM WELL. PT HAS CONTINUED TO DENY PAIN THIS SHIFT. BLADDER SCANNED WITH 45O RESIDUAL - PT REFUSED CATHETER. URINE OUTPUT HAS BEEN GOOD, 2000CC. PT ABLE TO HAVE SOFT BM. PT CONTINUING TO REFUSE ASSISTANCE TO BEDSIDE COMMODE. FAMILY VISITED THIS AFTERNOON. PT RESISTANT TO EDUCATION ABOUT DIET MODIFICATION - PT HAS LOTS OF FOOD AT BEDSIDE BROUGHT IN BY FAMILY. PT CONTINUES TO EAT DESPITE TEACHING ABOUT BLOOD GLUCOSE CONTORL AND DIET CHANGES. ABRASIONS TO UPPER EXTREMITIES NOTED. PT PARTIALLY PROGRESSING TOWARDS GOALS. CALL LIGHT IS WITHIN REACH. HOURLY ROUNDING PERFORMED.
[2017-03-09 20:00] VITALS: BP 152/78
[2017-03-10 00:16] VITALS: BP 150/75
[2017-03-10 04:25] VITALS: BP 152/72
--- NOTE | 2017-03-10 06:52 | NUR ---
ASSUMED CARE OF PT AT 1930, NURSING ASSESSMENT COMPLETED AT START OF SHIFT, CONTINUES ON TELE MONITOR, TRACING ATRIAL FLUTTER WITH BBB THIS SHIFT, PT EDUCATED ON IMPORTANCE OF ELEVATING BILAT LOWER EXTREMITIES AND IMPORTANCE OF ADHERING TO CARB CONTROLLED DIET BUT PATIENT CONTINUES TO HAVE MULTIPLE FOODS ON BEDSIDE TABLE THAT ARE NOT APPROPRIATE FOR PT'S DIET. PT ALSO EDUCATED ON IMPORTANCE OF FLUID RESTRICTION TO MINIMIZE EDEMA AND ALLOW DIURETICS TO WORK. PT REFUSES BED ALARM, HOURLY ROUNDING COMPLETED, CALL LIGHT WITHIN REACH. AT 2029, ACCU CHECK METER READ HI. STAT LAB ORDERED FOR BLOOD GLUCOSE. PT BLOOD GLUCOSE 536. DR. HORVATH NOTIFIED AT 2100. NEW ORDERS RECEIVED TO GIVE SCHEDULED SSI AND RECHECK IN 4 HRS AND GIVE S/S AGAIN IF NEEDED.
[2017-03-10 08:00] VITALS: BP 162/81
--- NOTE | 2017-03-10 09:00 | NUR ---
RECEIVED REPORT. ASSUMED CARE OF PT AT 0730. VSS. O2 SAT 96% ON 3L PER NC. PT REPORTS HE ONLY WEARS THE 3L AT NIGHT. REPLANTING MACHINE OPERATOR IN PLACE TRACING SR WITH BBB, PT IS SOMETIMES V-PACED. AM ASSESSMENT AND VITALS COMPLETED CHARTED. PT EATING AND DRINKING WITHOUT ISSUE. PT NON-COMPLIANT WITH FLUID RESTRICITON AND IS RESISTANT TO DIET MODIFICATION TEACHING AT THIS TIME. PT STATES HE "FEELS FINE" AND IS READY TO GO HOME. PT REFUSING BED ALARM AND DOES NOT CALL OUT FOR ASSISTANCE WITH TRANSFERING TO BEDSIDE COMMODE DESPITE INSTRUCTION TO DO SO. PT VOIDING INTO BEDSIDE COMMODE FREQUENTLY. WRAPS TO BLE CDI. SCROTUM SWELLING NOTED. RIGHT MEDIAL THIGH EXCORIATION NOTED. PT INSTRUCTED TO LAY IN BED MUCH POSSIBLE TO ELEVATE EXTREMITIES AND SCROTUM. PT PERSISITING TO SIT ON SIDE OF BED. PT INFORMED OF PLAN OF CARE - PLAN IS TO DC HOME TODAY PENDING CONSULT SIGN-OFFS. PT HAS SPOKEN WITH ON CELL PHONE. CALL LIGHT IS WITHIN REACH. FREQUENT MONITORING IN PLACE.
[2017-03-10 11:23] LABS: HEMATOCRIT 38.2 % (42.0-52.0); HEMOGLOBIN 12.2 gm/dL (14.0-18.0); MCH 29.2 pg (26.0-34.0); MCHC 31.8 g/dL (28.0-37.0); MCV 91.9 fL (80.0-100.0); MPV 10.3 fl. (7.2-11.1); NUCLEATED RBCS 0 /100WBC; PLATELET COUNT* 193 thou/uL (150-400); RBC 4.16 mil/uL (4.50-6.00); WBC 14.6 thou/uL (4.0-11.0)
[2017-03-10] MEDS ORDERED: PREDNISONE 10 M10 MG PO (11:28)
[2017-03-10] MEDS ORDERED: AMOXICILLIN 50500 MG PO (11:28)
[2017-03-10 11:30] LABS: CREATININE 2.2 mg/dL (0.6-1.3); POTASSIUM 4.7 mmol/L (3.5-5.1)
[2017-03-10 11:53] VITALS: BP 151/76
[2017-03-10 11:54] LABS: ABSOLUTE EOSINOPHILS 0.6 thou/uL (0.0-0.7); ABSOLUTE LYMPHOCYTES 0.4 thou/uL (0.8-5.3); ABSOLUTE MONOCYTES 0.3 thou/uL (0.0-1.2); ABSOLUTE NEUTROPHILS 13.3 thou/uL (1.6-8.1); METAMYELOCYTES 1 %; MYELOCYTES 1 %; PLATELET ESTIMATE ADEQUATE
--- NOTE | 2017-03-10 16:14 | NUR ---
CONSULTS SIGNED OFF AND HOSPITALIST GAVE THE GO-AHEAD TO PROCEED WITH DISCHARGE. PT DECLINED OFFER TO STAY IN HOSPITAL TO WAIT FOR POSSIBLE TRILOGY APPROVAL FROM INSURANCE. DISCHARGE COMPLETED CHARTED. DISCHARGE SUMMARY AND EDUCATION GONE OVER WITH PT - PT COMMUNCIATES UNDERSTANDING. CARE NOTES AND SCRIPTS GIVEN. PT AWARE OF ALL FOLLOW UP APPOINTMENTS. CARDIOLOGY TO CALL SUNDAY TO SET UP 1 WEEK APPOINTMENT PER HEART FAILURE PROTOCOL - FACE SHEET FAXED TO [facility]. WOUND CARE APPOINTMENT ALREADY SET AND NOTED IN DISCHARGE PAPERS. STOCK LETTERER SPOKE TO WOUND NURSE AND RECEIVED APPROVAL TO LEAVE BLE COMPRESSION WRAPS IN PLACE, THEY ARE CDI - NO DISCHARGE PICTURES NEEDED PER STOCK LETTERER. CASE MANAGEMENT WILL NOTIFY PT WHEN VERDICT IS REACHED REGARDING TRILOGY. ALL BELONGINGS GATHERED AND SENT WITH THE PT. VP PRODUCT MANAGEMENT REMOVED. VSS AT TIME OF DC. PT EATING AND DRINKING WITHOUT ISSUE. PT CONTINUED TO DENY PAIN THROUGHOUT SHIFT. PT LEFT UNIT IN WC WITH NURSING STAFF. PT LEFT HOSPITAL WITH SON IN CAR.
== END 2017-03-10 16:45 | disposition home or self-care (01) | DRG 871 ==
LOC: M.ERS 09:13 → M.2W 10:46 → M.ICU 10:46 → M.TBA-ER 10:46 → M.2W 15:34 → M.ICU 03-04 08:11 → M.2W 03-06 15:16
PROVIDERS: Family Medicine; Internal Medicine; Internal Medicine Cardiovascular Disease; Internal Medicine Critical Care Medicine; Internal Medicine Nephrology; Personal Emergency Response Attendant; Surgery; ADMIT Internal Medicine
PROC: 5A09357 Assistance with Respiratory Ventilation, Less than 24 Consecutive Hours, Continuous Positive Airway Pressure (ICD-10-PCS; principal; 2017-03-05)
DX: A40.8 Other streptococcal sepsis (principal); J18.9 Pneumonia, unspecified organism; I50.23 Acute on chronic systolic (congestive) heart failure; J96.22 Acute and chronic respiratory failure with hypercapnia; J44.1 Chronic obstructive pulmonary disease with (acute) exacerbation; J44.0 Chronic obstructive pulmonary disease with (acute) lower respiratory infection; L03.116 Cellulitis of left lower limb; L03.115 Cellulitis of right lower limb; N17.9 Acute kidney failure, unspecified; I13.0 Hypertensive heart and chronic kidney disease with heart failure and stage 1 through stage 4 chronic kidney disease, or unspecified chronic kidney disease; I48.2 Chronic atrial fibrillation; F17.210 Nicotine dependence, cigarettes, uncomplicated; E11.22 Type 2 diabetes mellitus with diabetic chronic kidney disease; N18.3 Chronic kidney disease, stage 3 (moderate); Z79.899 Other long term (current) drug therapy; Z79.51 Long term (current) use of inhaled steroids; Z88.8 Allergy status to other drugs, medicaments and biological substances

== ENCOUNTER → 2017-03-14 | Outpatient (CLI) | payer OTHER ==
[~2017-03-14] MED LIST changes: +AMOXICILLIN 50500 MG PO; +COREG6.25 MG PO; +LANTUS SUBQ; +LASIX 20 MG TAB20 MG PO; +PREDNISONE 10 M10 MG PO; +SYNTHROID100 MCG PO
== END ==
LOC: M.WC 01:21
DX: I87.313 Chronic venous hypertension (idiopathic) with ulcer of bilateral lower extremity (principal); I70.233 Atherosclerosis of native arteries of right leg with ulceration of ankle; L97.811 Non-pressure chronic ulcer of other part of right lower leg limited to breakdown of skin; L97.821 Non-pressure chronic ulcer of other part of left lower leg limited to breakdown of skin; I89.0 Lymphedema, not elsewhere classified; I11.0 Hypertensive heart disease with heart failure; I50.9 Heart failure, unspecified; J44.9 Chronic obstructive pulmonary disease, unspecified; Z87.891 Personal history of nicotine dependence

== ENCOUNTER → 2017-03-19 | Outpatient (CLI) | payer OTHER | LOC: M.WC 01:23 | DX: I87.2 Venous insufficiency (chronic) (peripheral) (principal); L97.821 Non-pressure chronic ulcer of other part of left lower leg limited to breakdown of skin; L97.811 Non-pressure chronic ulcer of other part of right lower leg limited to breakdown of skin; I11.0 Hypertensive heart disease with heart failure; I50.9 Heart failure, unspecified; J44.9 Chronic obstructive pulmonary disease, unspecified; Z87.891 Personal history of nicotine dependence ==

== ENCOUNTER → 2017-03-23 | Outpatient (CLI) | payer OTHER | LOC: M.WC 03-21 08:00 | DX: E11.622 Type 2 diabetes mellitus with other skin ulcer (principal); L97.821 Non-pressure chronic ulcer of other part of left lower leg limited to breakdown of skin; L97.811 Non-pressure chronic ulcer of other part of right lower leg limited to breakdown of skin; I70.233 Atherosclerosis of native arteries of right leg with ulceration of ankle; L97.311 Non-pressure chronic ulcer of right ankle limited to breakdown of skin; I11.0 Hypertensive heart disease with heart failure; I50.9 Heart failure, unspecified; I89.0 Lymphedema, not elsewhere classified; J44.9 Chronic obstructive pulmonary disease, unspecified; Z87.891 Personal history of nicotine dependence ==

== ENCOUNTER → 2017-03-28 | Outpatient (CLI) | payer OTHER | LOC: M.WC 01:24 | DX: I87.311 Chronic venous hypertension (idiopathic) with ulcer of right lower extremity (principal); E11.622 Type 2 diabetes mellitus with other skin ulcer; I70.233 Atherosclerosis of native arteries of right leg with ulceration of ankle; I70.292 Other atherosclerosis of native arteries of extremities, left leg; L97.811 Non-pressure chronic ulcer of other part of right lower leg limited to breakdown of skin; I89.0 Lymphedema, not elsewhere classified; J44.9 Chronic obstructive pulmonary disease, unspecified; I11.0 Hypertensive heart disease with heart failure; I50.9 Heart failure, unspecified; Z87.891 Personal history of nicotine dependence ==

== ENCOUNTER → 2017-04-11 | Outpatient (CLI) | payer OTHER | LOC: M.WC 04-04 10:00 | DX: E11.622 Type 2 diabetes mellitus with other skin ulcer (principal); I87.2 Venous insufficiency (chronic) (peripheral); L97.811 Non-pressure chronic ulcer of other part of right lower leg limited to breakdown of skin; I11.0 Hypertensive heart disease with heart failure; I50.9 Heart failure, unspecified; J44.9 Chronic obstructive pulmonary disease, unspecified; Z87.891 Personal history of nicotine dependence ==

== ENCOUNTER → 2017-04-13 | Outpatient (CLI) | payer OTHER | LOC: M.WC 00:57 | DX: E11.622 Type 2 diabetes mellitus with other skin ulcer (principal); I87.2 Venous insufficiency (chronic) (peripheral); L97.811 Non-pressure chronic ulcer of other part of right lower leg limited to breakdown of skin; I11.0 Hypertensive heart disease with heart failure; I50.9 Heart failure, unspecified; J44.9 Chronic obstructive pulmonary disease, unspecified; Z87.891 Personal history of nicotine dependence ==

== ENCOUNTER → 2017-04-18 | Outpatient (CLI) | payer OTHER | LOC: M.WC 01:36 | DX: E11.622 Type 2 diabetes mellitus with other skin ulcer (principal); I87.311 Chronic venous hypertension (idiopathic) with ulcer of right lower extremity; I70.238 Atherosclerosis of native arteries of right leg with ulceration of other part of lower leg; L97.811 Non-pressure chronic ulcer of other part of right lower leg limited to breakdown of skin; I89.0 Lymphedema, not elsewhere classified; I11.0 Hypertensive heart disease with heart failure; I50.9 Heart failure, unspecified; J44.9 Chronic obstructive pulmonary disease, unspecified; Z87.891 Personal history of nicotine dependence ==

== ENCOUNTER → 2017-04-25 | Outpatient (CLI) | payer OTHER | LOC: M.WC 03:24 | DX: E11.622 Type 2 diabetes mellitus with other skin ulcer (principal); L97.811 Non-pressure chronic ulcer of other part of right lower leg limited to breakdown of skin; I87.311 Chronic venous hypertension (idiopathic) with ulcer of right lower extremity; L97.311 Non-pressure chronic ulcer of right ankle limited to breakdown of skin; I70.233 Atherosclerosis of native arteries of right leg with ulceration of ankle; I89.0 Lymphedema, not elsewhere classified; I11.0 Hypertensive heart disease with heart failure; I50.9 Heart failure, unspecified; J44.9 Chronic obstructive pulmonary disease, unspecified; Z87.891 Personal history of nicotine dependence ==

== ENCOUNTER → 2018-08-21 | Outpatient (CLI) | payer OTHER ==
[2018-08-21 11:53] LABS: URINE BILIRUBIN NEGATIVE (Negative); URINE BLOOD TRACE (Negative); URINE CLARITY CLEAR; URINE COLOR YELLOW; URINE GLUCOSE-RANDOM NEGATIVE (Negative); URINE KETONES NEGATIVE (Negative); URINE LEUKOCYTES-REFLEX NEGATIVE (Negative); URINE NITRITE-REFLEX NEGATIVE (Negative); URINE PROTEIN 3+ (Negative); URINE UROBILINOGEN 0.2 E.U./dl (0.2-1.0)
[2018-08-21 11:56] LABS: ABSOLUTE BASOPHILS 0.1 thou/uL (0.0-0.2); ABSOLUTE EOSINOPHILS 0.3 thou/uL (0.0-0.7); ABSOLUTE LYMPHOCYTES 1.3 thou/uL (0.8-5.3); ABSOLUTE MONOCYTES 0.8 thou/uL (0.0-1.2); ABSOLUTE NEUTROPHILS 7.6 thou/uL (1.6-8.1); BASOPHILS 0.6 %; EOSINOPHILS 2.8 %; HEMATOCRIT 43.1 % (42.0-52.0); HEMOGLOBIN 14.2 gm/dL (14.0-18.0); LYMPHOCYTES 12.9 %; MCH 29.8 pg (26.0-34.0); MCHC 32.8 g/dL (28.0-37.0); MCV 90.7 fL (80.0-100.0); MONOCYTES 7.6 %; MPV 9.7 fl. (7.2-11.1); NUCLEATED RBCS 0 /100WBC; PLATELET COUNT* 229 thou/uL (150-400); POLYS 76.1 %; RBC 4.75 mil/uL (4.50-6.00)
[2018-08-21 12:09] LABS: BACTERIA-REFLEX 1-9 Few /HPF (None Seen); CASTS None Seen /LPF (None Seen); MUCUS 4-6 Moderate strn/LPF (None Seen); SQUAMOUS 4-10 Moderate /LPF (0-3); URINE RBC 0-2 Rare /HPF (0-2); URINE WBC-REFLEX 0-5 Rare /HPF (0-5)
[2018-08-21 12:10] LABS: CRYSTALS None Seen /LPF (None Seen)
[2018-08-21 12:14] LABS: CALCIUM 9.3 mg/dL (8.5-10.1); CREATININE 2.7 mg/dL (0.6-1.3); MAGNESIUM 2.2 mg/dL (1.8-2.4); PHOSPHORUS* 4.5 mg/dL (2.5-4.9); POTASSIUM 4.5 mmol/L (3.5-5.1)
[2018-08-21 12:30] LABS: CALCIUM 9.1 mg/dL (8.5-10.1); CREATININE 2.6 mg/dL (0.6-1.3); PHOSPHORUS* 4.7 mg/dL (2.5-4.9)
[2018-08-21 12:44] LABS: % SATURATION 16 % (20-39); IRON 63 ug/dL (50-175)
[2018-08-21 22:05] LABS: IgA 305 mg/dL (61-437); IgG 898 mg/dL (700-1600); IgM 60 mg/dL (20-172)
[2018-08-23 12:07] LABS: KAPPA FREE LIGHT CHAINS 71.7 mg/L (3.3-19.4); LAMBDA FREE LIGHT CHAINS 45.4 mg/L (5.7-26.3)
== END ==
LOC: M.LAB 11:23
PROVIDERS: Internal Medicine
DX: I13.0 Hypertensive heart and chronic kidney disease with heart failure and stage 1 through stage 4 chronic kidney disease, or unspecified chronic kidney disease (principal); I50.9 Heart failure, unspecified; N18.3 Chronic kidney disease, stage 3 (moderate); E11.22 Type 2 diabetes mellitus with diabetic chronic kidney disease; D50.9 Iron deficiency anemia, unspecified; J44.9 Chronic obstructive pulmonary disease, unspecified

== ENCOUNTER → 2018-09-09 | Outpatient (CLI) | payer OTHER ==
[2018-09-09 08:27] LABS: CALCIUM 9.1 mg/dL (8.5-10.1); CREATININE 2.6 mg/dL (0.6-1.3); POTASSIUM 4.8 mmol/L (3.5-5.1)
== END ==
LOC: M.LAB 07:00
PROVIDERS: Nurse Practitioner Family
DX: I13.0 Hypertensive heart and chronic kidney disease with heart failure and stage 1 through stage 4 chronic kidney disease, or unspecified chronic kidney disease (principal); I50.9 Heart failure, unspecified; N18.3 Chronic kidney disease, stage 3 (moderate); E11.22 Type 2 diabetes mellitus with diabetic chronic kidney disease; J44.9 Chronic obstructive pulmonary disease, unspecified

== ENCOUNTER → 2018-12-23 | Outpatient (CLI) | payer OTHER ==
[2018-12-23 09:58] LABS: URINE BILIRUBIN NEGATIVE (Negative); URINE BLOOD TRACE (Negative); URINE CLARITY CLEAR; URINE COLOR YELLOW; URINE GLUCOSE-RANDOM NEGATIVE (Negative); URINE KETONES NEGATIVE (Negative); URINE LEUKOCYTES NEGATIVE (Negative); URINE NITRITE NEGATIVE (Negative); URINE PROTEIN 2+ (Negative); URINE UROBILINOGEN 0.2 E.U./dl (0.2-1.0)
[2018-12-23 10:04] LABS: ABSOLUTE BASOPHILS 0.1 thou/uL (0.0-0.2); ABSOLUTE EOSINOPHILS 0.2 thou/uL (0.0-0.7); ABSOLUTE LYMPHOCYTES 1.4 thou/uL (0.8-5.3); ABSOLUTE MONOCYTES 0.8 thou/uL (0.0-1.2); ABSOLUTE NEUTROPHILS 6.3 thou/uL (1.6-8.1); BASOPHILS 1.1 %; EOSINOPHILS 2.8 %; HEMATOCRIT 44.2 % (42.0-52.0); HEMOGLOBIN 14.8 gm/dL (14.0-18.0); MCH 30.1 pg (26.0-34.0); MCHC 33.6 g/dL (28.0-37.0); MCV 89.8 fL (80.0-100.0); MONOCYTES 8.7 %; MPV 9.3 fl. (7.2-11.1); NUCLEATED RBCS 0 /100WBC; PLATELET COUNT* 166 thou/uL (150-400); POLYS 71.4 %; RBC 4.92 mil/uL (4.50-6.00); RDW-CV 14.8 % (10.5-14.5); WBC 8.7 thou/uL (4.0-11.0)
[2018-12-23 10:11] LABS: BACTERIA 1-9 Few /HPF (None Seen); CASTS None Seen /LPF (None Seen); CRYSTALS None Seen /LPF (None Seen); MUCUS 0-3 Light strn/LPF (None Seen); SQUAMOUS 0-3 Few /LPF (0-3); URINE RBC 0-2 Rare /HPF (0-2); URINE WBC 0-5 Rare /HPF (0-5)
[2018-12-23 10:13] LABS: ALBUMIN 3.5 g/dL (3.4-5.0); ALKALINE PHOSPHATASE 67 U/L (46-116); ANION GAP 9 mmol/L (7-16); BUN 44 mg/dL (7-18); CALCIUM 9.3 mg/dL (8.5-10.1); CHLORIDE 106 mmol/L (98-107); CHOLESTEROL 121 mg/dL (<200); CO2 27 mmol/L (21-32); CREATININE 2.1 mg/dL (0.6-1.3); GLUCOSE 88 mg/dL (70-99); HDL CHOLESTEROL 35 mg/dL (>40); LDL CHOLESTEROL 70 mg/dL (<100); MAGNESIUM 2.3 mg/dL (1.8-2.4); PHOSPHORUS* 4.5 mg/dL (2.5-4.9); POTASSIUM 4.5 mmol/L (3.5-5.1); SGOT 16 U/L (15-37); SGPT 27 U/L (30-65); SODIUM 142 mmol/L (136-145); TC:HDL 3.5 Ratio (Not establshd); TOTAL BILIRUBIN 0.6 mg/dL (<0.1-1.0); TOTAL PROTEIN 7.1 g/dL (6.4-8.2); TRIGLYCERIDE 84 mg/dL (<150); VLDL 17 mg/dL (<40)
[2018-12-23 10:17] LABS: SERUM ASSESSMENT Clear
[2018-12-23 10:19] LABS: % SATURATION 26 % (20-39); IRON 93 ug/dL (50-175)
[2018-12-24 02:06] LABS: GLYCOHEMOGLOBIN (HGB A1C) 6.1 % (4.8-5.6)
== END ==
LOC: M.LAB 09:39
PROVIDERS: Internal Medicine
DX: E11.22 Type 2 diabetes mellitus with diabetic chronic kidney disease (principal); I12.9 Hypertensive chronic kidney disease with stage 1 through stage 4 chronic kidney disease, or unspecified chronic kidney disease; N18.3 Chronic kidney disease, stage 3 (moderate); D50.9 Iron deficiency anemia, unspecified; E78.5 Hyperlipidemia, unspecified

== ENCOUNTER → 2019-05-15 | Outpatient (CLI) | payer OTHER ==
[2019-05-15 11:07] LABS: ABSOLUTE BASOPHILS 0.1 thou/uL (0.0-0.2); ABSOLUTE EOSINOPHILS 0.3 thou/uL (0.0-0.7); ABSOLUTE LYMPHOCYTES 1.3 thou/uL (0.8-5.3); ABSOLUTE MONOCYTES 0.8 thou/uL (0.0-1.2); ABSOLUTE NEUTROPHILS 6.3 thou/uL (1.6-8.1); BASOPHILS 0.8 %; EOSINOPHILS 3.6 %; HEMATOCRIT 41.3 % (42.0-52.0); LYMPHOCYTES 14.9 %; MCH 30.7 pg (26.0-34.0); MCV 90.2 fL (80.0-100.0); MONOCYTES 9.3 %; MPV 10.1 fl. (7.2-11.1); NUCLEATED RBCS 0 /100WBC; PLATELET COUNT* 152 thou/uL (150-400); POLYS 71.4 %; RBC 4.58 mil/uL (4.50-6.00); RDW-CV 14.6 % (10.5-14.5); WBC 8.8 thou/uL (4.0-11.0)
[2019-05-15 11:14] LABS: URINE BILIRUBIN NEGATIVE (Negative); URINE BLOOD TRACE (Negative); URINE CLARITY CLEAR; URINE COLOR YELLOW; URINE GLUCOSE-RANDOM TRACE (Negative); URINE KETONES NEGATIVE (Negative); URINE LEUKOCYTES NEGATIVE (Negative); URINE NITRITE NEGATIVE (Negative); URINE PROTEIN 2+ (Negative); URINE UROBILINOGEN 0.2 E.U./dl (0.2-1.0)
[2019-05-15 11:20] LABS: MAGNESIUM 2.2 mg/dL (1.8-2.4); PHOSPHORUS* 4.7 mg/dL (2.5-4.9)
[2019-05-15 11:22] LABS: ALBUMIN 3.5 g/dL (3.4-5.0); CALCIUM 8.4 mg/dL (8.5-10.1); CREATININE 2.4 mg/dL (0.6-1.3); POTASSIUM 4.3 mmol/L (3.5-5.1); TOTAL BILIRUBIN 0.4 mg/dL (<0.1-1.0); TOTAL PROTEIN 7.3 g/dL (6.4-8.2)
[2019-05-15 11:23] LABS: BACTERIA None Seen /HPF (None Seen); CASTS None Seen /LPF (None Seen); CRYSTALS None Seen /LPF (None Seen); SQUAMOUS NONE SEEN /LPF (0-3); URINE RBC None Seen /HPF (0-2); URINE WBC None Seen /HPF (0-5)
[2019-05-15 11:50] LABS: CALCIUM 8.2 mg/dL (8.5-10.1); CREATININE 2.5 mg/dL (0.6-1.3); PHOSPHORUS* 4.7 mg/dL (2.5-4.9)
[2019-05-15 22:26] LABS: CHOLESTEROL 136 mg/dL (<200); HDL CHOLESTEROL 33 mg/dL (>40); LDL CHOLESTEROL 71 mg/dL (<100); TC:HDL 4.1 Ratio (Not establshd); TRIGLYCERIDE 160 mg/dL (<150); VLDL 32 mg/dL (<40)
[2019-05-15 22:27] LABS: SERUM ASSESSMENT Clear
[2019-05-16 02:07] LABS: GLYCOHEMOGLOBIN (HGB A1C) 7.8 % (4.8-5.6)
== END ==
LOC: M.LAB 10:40
PROVIDERS: Family Medicine; Internal Medicine
DX: E11.9 Type 2 diabetes mellitus without complications (principal); E03.9 Hypothyroidism, unspecified; E78.5 Hyperlipidemia, unspecified; I12.9 Hypertensive chronic kidney disease with stage 1 through stage 4 chronic kidney disease, or unspecified chronic kidney disease; N18.3 Chronic kidney disease, stage 3 (moderate)

== ENCOUNTER → 2020-02-17 | Outpatient (CLI) | payer OTHER ==
[2020-02-17 15:13] LABS: HEMATOCRIT 37.7 % (42.0-52.0); HEMOGLOBIN 12.7 gm/dL (14.0-18.0)
[2020-02-17 15:28] LABS: ALBUMIN 3.3 g/dL (3.4-5.0); CALCIUM 9.2 mg/dL (8.5-10.1); CREATININE 3.5 mg/dL (0.6-1.3); POTASSIUM 4.6 mmol/L (3.5-5.1); TOTAL BILIRUBIN 0.5 mg/dL (<0.1-1.0); TOTAL PROTEIN 7.1 g/dL (6.4-8.2)
[2020-02-17 15:32] LABS: CALCIUM 9.2 mg/dL (8.5-10.1); CREATININE 3.6 mg/dL (0.6-1.3)
[2020-02-18 02:06] LABS: GLYCOHEMOGLOBIN (HGB A1C) 10.9 % (4.8-5.6)
== END ==
LOC: M.LAB 14:48
PROVIDERS: ATTEND Internal Medicine Endocrinology, Diabetes & Metabolism
DX: E11.22 Type 2 diabetes mellitus with diabetic chronic kidney disease (principal); N18.4 Chronic kidney disease, stage 4 (severe)